=== PATIENT | female | born 1980 | race Caucasian/White ===

== ENCOUNTER → 2016-10-06 | Outpatient (CLI) | payer BC ==
[2004-02-18 00:40] VITALS: PULSE 86; TEMP 98.5
[~2016-10-06] MED LIST: PRENATAL1 TA1 PO
== END ==
LOC: COL.VAS 08:00
DX: Q87.40 Marfan syndrome, unspecified (principal)

== ENCOUNTER → 2020-05-31 | Outpatient (CLI) | payer BC ==
[2004-02-18 00:40] VITALS: PULSE 86; TEMP 98.5
== END ==
LOC: MC.RAD 07:45
DX: Z12.31 Encounter for screening mammogram for malignant neoplasm of breast (principal); Z98.82 Breast implant status